=== PATIENT | female | born 1995 | race Caucasian/White ===

== ENCOUNTER 2016-11-27 06:09 | Emergency (ER) | payer BC ==
[~2016-11-27] VITALS: Ht 167.6 cm; Wt 99.8 kg
[2016-11-27 06:14] VITALS: BP 163/85
[2016-11-27] MEDS ORDERED: TRINTAB PO (06:17)
[2016-11-27] MEDS ORDERED: ALLE25CA8 PO (06:19)
[2016-11-27] MEDS ORDERED: KETOROLAC 30 MG/ML VIAL (J1885) IV ONE (06:45)
[2016-11-27] MEDS ORDERED: ONDANSETRON 4MG/2ML VIAL (J2405) IV ONE (06:45)
[2016-11-27 07:25] LABS: BASO % 0.3 % (0.0-1.0); EOS # 0.2 K/mm3 (0.0-0.50); EOS % 3.1 % (0.0-3.0); LARGE UNSTAINED CELL # 0.1 K/mm3 (0.0-0.4); LARGE UNSTAINED CELL % 1.6 % (0.0-4.0); LYMPH # 2.7 K/mm3 (1.5-6.5); LYMPH % 34.7 % (24.0-44.0); MEAN CORPUSCULAR HEMOGLOBIN 27.2 pg (27.0-33.0); MEAN CORPUSCULAR HGB CONC 33.2 g/dl (32.0-36.5); MEAN CORPUSCULAR VOLUME 81.7 fl (80.0-96.0); MONO # 0.3 K/mm3 (0.0-0.8); NEUTROPHILS # 4.1 K/mm3 (1.8-7.7); NEUTROPHILS % 56.3 % (36.0-66.0); PLATELET COUNT, AUTOMATED 285 k/mm3 (150-450); RED CELL DISTRIBUTION WIDTH 12.3 % (11.5-14.5); WHITE BLOOD COUNT 7.3 K/mm3 (4.0-10.0)
[2016-11-27 07:39] LABS: ALBUMIN 3.7 GM/DL (3.2-5.2); ALKALINE PHOSPHATASE 83 U/L (45-117); ALT/SGPT 22 U/L (12-78); ANION GAP 9 MEQ/L (8-16); AST/SGOT 21 U/L (15-37); BILIRUBIN,DIRECT < 0.1 MG/DL (0.0-0.2); BILIRUBIN,TOTAL 0.2 MG/DL (0.2-1.0); BLOOD UREA NITROGEN 10 MG/DL (7-18); CALCIUM LEVEL 9.1 MG/DL (8.5-10.1); CARBON DIOXIDE LEVEL 25 MEQ/L (21-32); CHLORIDE LEVEL 104 MEQ/L (98-107); CREATININE FOR GFR 0.88 MG/DL (0.55-1.02); GLOMERULAR FILTRATION RATE > 60.0 (>60); GLUCOSE, FASTING 111 MG/DL (70-105); POTASSIUM SERUM 3.7 MEQ/L (3.5-5.1); SODIUM LEVEL 138 MEQ/L (136-145); TOTAL PROTEIN 7.8 GM/DL (6.4-8.2)
[2016-11-27] MEDS ORDERED: NORCOTAB PO (08:30)
[2016-11-27] MEDS ORDERED: NAPR500T PO (08:30)
[2016-11-27] MEDS ORDERED: FLOM5CAP PO (08:30)
[2016-11-27] MEDS ORDERED: ZOFR4TAB3 PO (08:30)
--- NOTE | 2016-11-27 09:46 | REP ---
Right lower quadrant pain, hematuria. PRIORS: None. Limited evaluation of the solid intra-abdominal organs and gallbladder show no gross abnormalities. Limited evaluation of the pancreas, adrenal glands, and left kidney show no gross abnormalities. There is minimal right-sided hydronephrosis and right-sided hydroureter. There is a 2 mm size calcification in the right ureterovesical junction responsible for the aforementioned. The bowel loops and mesenteries are within normal limits. There is no free fluid or free air. There is no intra-abdominal or intrapelvic mass or adenopathy. Bone window technique through the examination shows the osseous structures to be within normal limits. IMPRESSION: 2 mm size right ureterovesical junction calcification with result and findings as described above. Signed by Stephen Negron DO 11/27/2016 09:55 A
== END 2016-11-27 08:52 | disposition home or self-care (01) ==
LOC: M ED 07:31
DX: N20.1 Calculus of ureter (principal)
CPT/HCPCS: 74176; 80048; 80076; 81025; 83690; 85025; 86140; 96374; 96375; 99283; J1885; J2405

== ENCOUNTER → 2019-05-13 | Outpatient (REF) | payer BC ==
[~2019-05-13] MED LIST: ALLE25CA8 PO; FLOM0.4C39 PO; HYDR-3715 PO; NAPR-837 PO; TRINTAB PO; ZOFR4TAB14 PO
[2019-05-16 14:07] LABS: HPV HYBRID CAPTURE II Negative (Negative)
== END ==
LOC: M LAB LCGH 11:28
PROVIDERS: ATTEND Nurse Practitioner Adult Health
DX: Z12.4 Encounter for screening for malignant neoplasm of cervix (principal)
CPT/HCPCS: 87624; G0123

== ENCOUNTER 2019-09-29 13:17 | Emergency (ER) | payer BC ==
[~2019-09-29] VITALS: Ht 167.6 cm; Wt 109.1 kg
[2019-09-29] MEDS ORDERED: IBUP-1114 PO (13:26)
[2019-09-29] MEDS ORDERED: LEVOTAB10 (13:26)
[2019-09-29 14:12] LABS: BASO % 0.3 % (0.0-1.0); EOS # 0.2 10^3/uL (0.0-0.5); EOS % 1.4 % (0.0-3.0); HEMATOCRIT 37.9 % (36.0-47.0); HEMOGLOBIN 12.4 g/dl (12.0-15.5); LYMPH # 2.5 10^3/uL (1.5-5.0); LYMPH % 20.8 % (24.0-44.0); MEAN CORPUSCULAR HGB CONC 32.7 g/dl (32.0-36.5); MEAN CORPUSCULAR VOLUME 82.6 fl (80.0-96.0); MONO # 0.7 10^3/uL (0.0-0.8); MONO % 5.4 % (0.0-5.0); NEUTROPHILS # 8.8 10^3/uL (1.5-8.5); NEUTROPHILS % 71.9 % (36.0-66.0); PLATELET COUNT, AUTOMATED 295 10^3/uL (150-450); RED BLOOD COUNT 4.59 10^6/uL (4.00-5.40); WHITE BLOOD COUNT 12.2 10^3/uL (4.0-10.0)
[2019-09-29 14:39] LABS: ALBUMIN 3.8 GM/DL (3.2-5.2); ALT/SGPT 23 U/L (12-78); BILIRUBIN,DIRECT < 0.1 MG/DL (0.0-0.2); BILIRUBIN,TOTAL 0.2 MG/DL (0.2-1.0); LIPASE 129 U/L (73-393); TOTAL PROTEIN 7.4 GM/DL (6.4-8.2)
--- NOTE | 2019-09-29 16:13 | REP ---
Clinical: Pelvic pain. Technique: Transabdominal pelvic ultrasound of the pelvis. Findings: Examination is significantly limited due to body habitus and associated technical factors including overlying bowel gas. Anteverted uterus measures approximately 7.0 x 3.4 x 5.0 cm but detailed evaluation is incomplete. Ovaries not visualized. No obvious pelvic fluid. No obvious pelvic mass. Impression: Severely limited examination. Electronically Signed by Hector Blank MD 09/29/2019 04:04 P
[2019-09-29] MEDS ORDERED: DICYCLOMINE 10 MG CAP PO ONE (17:15)
--- NOTE | 2019-09-29 17:58 | REP ---
Clinical: Abdominal pain. Technique: Upright view of the chest with supine and upright views of the abdomen and pelvis. Findings: Frontal upright view of the chest demonstrates no acute cardiopulmonary process or free air below the diaphragm to suspect pneumoperitoneum. Supine and upright views of the abdomen and pelvis demonstrate nonspecific bowel gas pattern without obstruction or perforation. No organomegaly. No abnormal calcifications. Skeletal structures normal for age. Impression: Nonspecific bowel gas pattern. Electronically Signed by Hector Blank MD 09/29/2019 05:49 P
[2019-09-29 18:36] VITALS: BP 108/57
== END 2019-09-29 18:42 | disposition home or self-care (01) ==
LOC: M ED 13:17
DX: R10.30 Lower abdominal pain, unspecified (principal); R11.0 Nausea; E66.9 Obesity, unspecified; N89.8 Other specified noninflammatory disorders of vagina; Z87.442 Personal history of urinary calculi; Z87.448 Personal history of other diseases of urinary system; Z87.42 Personal history of other diseases of the female genital tract; Z79.899 Other long term (current) drug therapy

== ENCOUNTER → 2020-07-14 | Outpatient (CLI) | payer BC ==
[~2020-07-14] MED LIST changes: +IBUP-1114 PO; +LEVOTAB10
== END ==
LOC: M LABSMTC 10:45
PROVIDERS: ATTEND Family Medicine
DX: Z20.828 Contact with and (suspected) exposure to other viral communicable diseases (principal)

== ENCOUNTER → 2020-09-04 | Outpatient (REF) | payer BC ==
[2020-09-04 18:25] LABS: ALBUMIN 3.9 GM/DL (3.2-5.2); ALT/SGPT 18 U/L (12-78); BILIRUBIN,TOTAL 0.1 MG/DL (0.2-1.0); BLOOD UREA NITROGEN 10 MG/DL (7-18); CALCIUM LEVEL 9.4 MG/DL (8.5-10.1); CARBON DIOXIDE LEVEL 29 MEQ/L (21-32); CHLORIDE LEVEL 104 MEQ/L (98-107); CREATININE FOR GFR 0.85 MG/DL (0.55-1.30); GLOMERULAR FILTRATION RATE > 60.0 (>60); GLUCOSE, FASTING 91 MG/DL (70-100); POTASSIUM SERUM 3.7 MEQ/L (3.5-5.1); SODIUM LEVEL 140 MEQ/L (136-145); TOTAL PROTEIN 7.6 GM/DL (6.4-8.2)
== END ==
LOC: M LAB REF 16:32
PROVIDERS: ATTEND Internal Medicine
DX: Z00.00 Encounter for general adult medical examination without abnormal findings (principal)

== ENCOUNTER → 2021-03-08 | Outpatient (CLI) | payer BC | LOC: M WUC 10:00 | PROVIDERS: ATTEND Allergy & Immunology Allergy | DX: T78.1XXA Other adverse food reactions, not elsewhere classified, initial encounter (principal) ==